=== PATIENT | male | born 1955 | race Two or more races ===

== ENCOUNTER 2025-04-23 03:08 | Emergency (ER) | payer OTHER ==
[~2025-04-23] VITALS: Ht 182.9 cm; Wt 103.4 kg
[2025-04-23] MEDS ORDERED: KLOR-CON 1010 MEQ (03:58)
[2025-04-23] MEDS ORDERED: LOSARTAN POTAS100 MG (03:58)
[2025-04-23] MEDS ORDERED: TAMS0.4C (03:59)
[2025-04-23] MEDS ORDERED: HYDROCHLOROTHIA25 MG (04:00)
[2025-04-23 06:16] LABS: BASO % 0.6 % (0.1-1.2); EOS # 0.48 (0.04-0.54); EOS % 6.1 % (0.7-7.0); LYMPH # 2.53 (1.18-3.74); LYMPH % 32.1 % (19.3-53.1); MEAN PLATELET VOLUME 10.70 fl (9.4-12.4); MONO # 0.71 (0.24-0.82); MONO % 9.0 % (4.7-12.5); NEUT # 4.06 (1.56-6.13); NEUT % 51.6 % (34.0-71.1); RED CELL DISTRIBUTION WIDTH 13.0 % (11.6-14.4)
[2025-04-23 06:39] LABS: URINE APPEARANCE Clear; URINE BILIRRUBIN Negative (NEGATIVE); URINE BLOOD Negative; URINE COLOR Yellow; URINE GLUCOSE Negative (NEGATIVE); URINE KETONE Negative (NEGATIVE); URINE LEUKOCYTE Negative; URINE NITRATE Negative; URINE PROTEIN Negative (NEGATIVE); URINE UROBILINOGEN 0.2 E.U./dl
[2025-04-23 06:41] LABS: URINE BACTERIA 1.1 uL (0.0-1933); URINE CAST 0.00 uL (0.0-1.40); URINE EPITHELIAL CELLS 0.9 uL (0.0-38.8); URINE RBC 1.4 uL (0.0-20.8); URINE WBC 1.0 uL (0.0-23.2)
[2025-04-23 06:50] LABS: ALT/SGPT 24.0 U/L (12-78); AST/SGOT 22.0 U/L (15-37); BILIRUBIN TOTAL 0.6 mg/dL (0.3-1.2); BUN CREA RATIO 21.0 (7.0-25.0); CREATININE SERUM 0.9 mg/dL (0.70-1.30); GFR 83.42; GLOBULINA 2.4 G/DL (2.4-3.5); GLUCOSE FASTING 133.0 mg/dL (65-100); OSMOLALITY SERUM 285.0 MOSM/KG (275-295)
[2025-04-23 06:57] LABS: INR 1.06
[2025-04-23] MEDS ORDERED: POTASSIUM CHLORIDE 10 MEQ CAPSULE PO STA (07:42)
[2025-04-23] MEDS ORDERED: ORPHENADRINE CITRATE 30 MG/ML AMPUL IM STA (07:44)
[2025-04-23] MEDS ORDERED: KETOROLAC TROMETHAMINE 60 MG VIAL IM STA (07:44)
[2025-04-23] MEDS ORDERED: KETOROLAC TROMETHAMINE 60 MG VIAL IM ONE (07:45)
[2025-04-23] MEDS ORDERED: ORPHENADRINE CITRATE 30 MG/ML AMPUL ONE (07:45)
== END 2025-04-23 08:23 | disposition home or self-care (01) ==
LOC: ER 03:09
PROVIDERS: Physician Assistant Medical
DX: E87.6 Hypokalemia (principal); M94.0 Chondrocostal junction syndrome [Tietze]; R07.89 Other chest pain; I10 Essential (primary) hypertension
CPT/HCPCS: 36415; 71046; 93005; 96372; 99283; J1885; J2360